=== PATIENT | male | born 1985 | race Caucasian/White ===

== ENCOUNTER → 2016-11-12 | Outpatient (CLI) | payer OTHER ==
[~2016-11-12] MED LIST: MTR600XX PO; ULT50X PO
[2016-11-12 15:09] LABS: BASO % 0.2 %; BASO ABS # 0.02 K/uL (0-0.2); COMPLETE YES; EOS % 3.2 %; HEMATOCRIT 39.1 % (42-52); IG% 0.1 %; LYMPH % 36.1 %; LYMPH ABS # 3.02 K/uL (1.2-3.4); MEAN CELL VOLUME 87.1 fL (80-100); MEAN CORPUSCULAR HEMOGLOBIN 30.7 pg (25-34); MEAN CORPUSCULAR HGB CONC 35.3 g/dl (32-36); MEAN PLATELET VOLUME 9.1 fL (7.4-10.4); MONO % 5.5 %; NEUT % 54.9 %; PLATELET COUNT 410 K/uL (130-400); RED BLOOD COUNT 4.49 M/uL (4.7-6.1); WHITE BLOOD COUNT 8.36 K/uL (4.8-10.8)
[2016-11-12 15:20] LABS: ALT/SGPT 16 U/L (12-78); BLOOD UREA NITROGEN 10 mg/dl (7-18); BUN/CREATININE RATIO 9.3 (10-20); CALCIUM 8.5 mg/dl (8.5-10.1); CARBON DIOXIDE 26 mmol/L (21-32); CHLORIDE 108 mmol/L (98-107); GLUCOSE 115 mg/dl (70-99); POTASSIUM 4.2 mmol/L (3.5-5.1); SODIUM 141 mmol/L (136-145)
[2016-11-12 15:22] LABS: ALB/GLOB RATIO 1.3 (0.9-2); ALKALINE PHOSPHATASE 49 U/L (45-117); AST/SGOT 9 U/L (15-37)
[2016-11-15 13:52] LABS: HEPATITIS C VIRAL RNA BY PCR <15 NOT DETECTED IU/ML (<15); HEPATITIS C VIRAL RNA(LOG) PCR <1.18 NOT DETECTED LOG IU/ML (<1.18)
== END | disposition home or self-care (01) ==
LOC: C.LABBC 11:45
PROVIDERS: ATTEND Internal Medicine
DX: F19.10 Other psychoactive substance abuse, uncomplicated (principal)

== ENCOUNTER 2017-01-17 16:20 | Emergency (ER) | payer OTHER ==
[~2017-01-17] VITALS: Ht 193 cm; Wt 89.2 kg
--- NOTE | 2017-01-17 16:28 | EMERGENCY ROOM VISIT NOTE ---
History Report prepared by Misti: Dmitriy Bhagat Under the Supervision of: Dr. Juanita Queen M.D. First contact with patient: 16:10 Stated Complaint: CARDIAC ARREST History of Present Illness The patient is a 30 year old male who presents to the Emergency Room via EMS in cardiac arrest after hanging that occurred more than an hour ago. Per EMS, the patient called his family stating that he was going to commit suicide. Around 20 minutes later, the patient's family found the patient hanging by a chain using a step stool. The patient had 5 epinephrine with periodic return of circulation briefly. CPR in progress w Jesus machine. Per EMS, the patient has h/o heroin abuse with DUI charges last night. He has a history of bipolar and anxiety. Source of History: EMS Onset: More than an hour ago Position: other (global - suicide attempt) Quality: other (by hanging with a chain using a step stool) Note: Associated symptoms: Current blood pressure of 100/60 per EMS. Patient stated suicidal intent before hanging. Had return to circulation 5 times. Review of Systems See HPI for pertinent positives & negatives. A total of 10 systems reviewed and were otherwise negative. Past Medical & Surgical Medical Problems: (1) Cannabis Abuse-Unspec (2) Chronic Hepatitis C W/O Hepatic Coma (3) Depressive Disorder Nec (4) Drug Abuse Nec-Unspec (5) Tobacco Use Disorder Surgical Problems: (1) No significant past surgical history Family History Unobtainable Social History Drug Use: heroin Marital Status: single Occupation Status: unemployed Current/Historical Medications Scheduled PRN Ibuprofen (Ibuprofen), 600 MG PO Q6H PRN for Pain Tramadol HCl (Tramadol HCl), 50 MG PO Q4H PRN for Pain Allergies Coded Allergies: No Known Allergies (Verified , 12/12/14) Physical Exam Vital Signs Date Time Temp Pulse Resp B/P Pulse Ox O2 Delivery O2 Flow Rate FiO2 01/17/17 16:41 0 0 0/0 0 Ambu-Bag 15.0 Physical Exam Vital signs reviewed. General: Boarded and collared 31 year old male, critical condition, Jesus machine in place. HEENT: No scleral icterus, PERRLA. Significant trauma to the neck. Cardiovascular: No audible heart tones. Pulmonary: No breath sounds. Abdomen: Soft, nontender, nondistended, positive bowel sounds. Musculoskeletal: Atraumatic, no significant deformity. Trauma to the neck as described above, no significant extremity deformities. Neurologic: Patient unresponsive. Skin: Pale, cool, and cyanotic. Medical Decision & Procedures Procedure Bedside echo performed by Dr. Sanchez ([facility] [place] contract programmer) with no appreciable cardiac activity. ED Course 1619: Past medical records reviewed. The patient was evaluated in room A1. A history and physical examination was performed. Medical Decision Differential diagnosis includes but is not limited to: drug overdose, cardiac arrhythmia, hanging. This patient was evaluated with CPR in progress. Patient is noted to have significant trauma to the neck. He is in an agonal rhythm with no peripheral pulses. Bedside echo was performed with no cardiac activity. The CODE BLUE was terminated and patient was pronounced at 1621. Patient's mother was informed with her friend at the bedside. Case management and nursing staff were available to help with arrangements. Impression Primary Impression: Suicide Additional Impression: Hanging Scribe Attestation The scribe's documentation has been prepared under my direction and personally reviewed by me in its entirety. I confirm that the note above accurately reflects all work, treatment, procedures, and medical decision making performed by me. Departure Information Dispostion Other () Problem Qualifiers
[2017-01-17 16:41] VITALS: BP 0/0; PULSE 0; O2SAT 0; Ht 193 cm; Wt 89.2 kg
== END 2017-01-17 18:00 | disposition expired ==
LOC: EDBD 16:20 → C.ED 16:20
DX: T71.162A Asphyxiation due to hanging, intentional self-harm, initial encounter (principal); X83.8XXA Intentional self-harm by other specified means, initial encounter; F31.9 Bipolar disorder, unspecified; F41.9 Anxiety disorder, unspecified; F11.10 Opioid abuse, uncomplicated; F12.10 Cannabis abuse, uncomplicated; Z72.0 Tobacco use; Z79.899 Other long term (current) drug therapy